=== PATIENT | female | born 1955 | race Caucasian/White ===

== ENCOUNTER 2025-01-05 22:05 | Emergency (ER) | payer OTHER ==
[~2025-01-05] VITALS: Ht 162.6 cm; Wt 65.0 kg
[2025-01-05 23:00] VITALS: PULSE 113; RESP 17; O2SAT 100
[2025-01-05] MEDS: ONDANSETRON HCL 4 MG/2 ML VIAL IV ONE (23:18)
[2025-01-05] MEDS: HYDROmorphone HCL 2 MG/ML VL/or syr IV ONE (23:19)
--- NOTE | 2025-01-05 23:50 | ED.PDOC ---
History of Present Illness HPI Comments This patient is a 69-year-old female who is on hospice due to metastatic cancer who arrives the ED today via EMS for evaluation of her tracheostomy status post vomiting event at home approximately 2 hours prior to arrival. Patient had vomiting event at home and dislodged part of her tracheostomy. Family was initially concerned about possible aspiration. Patient did not displays signs of vomiting while at the ED. Patient was hypertensive and tachycardic at arrival. Chief Complaint: Tube Replacement Time Seen by MD: 22:09 Reviewed Notes: Nurses Notes Information Source: Patient, Relative (Child) Mode of Arrival: EMS Severity: Mild Timing: Hours Duration: Since onset Prehospital treatment: None Past Medical History PAST MEDICAL HISTORY: Cancer Past Medical History (Other): Metastatic lung cancer. Patient is on a tracheostomy. Surgical History: Denies all surgeries [employer] History: No Pertinent [employer] History Family History Family History: Reviewed,noncontributory to illness, No family hx of Cancer, No family hx of DM, No family hx of Heart fern[place], No family hx of HTN, No family hx ofKidney fernando, No family hx of Liver fern[place], No family hx of Lung fern[place], No family hx of Stroke Social History Smoker: Non-Smoker Alcohol: Denies ETOH Use Drugs: Denies Drug Use Lives In: Home Constitutional: denies: chills, diaphoresis, fatigue, fever, malaise, sweats, weakness, others EENTM: reports: others (Tracheostomy evaluation); denies: blurred vision, double vision, ear bleeding, ear discharge, ear drainage, ear pain, ear ringing, eye pain, eye redness, hearing loss, mouth pain, mouth swelling, nasal discha rge, nose bleeding, nose congestion, nose pain, photophobia, tearing, throat pain, throat swelling, voice changes Respiratory: denies: cough, hemoptysis, orthopnea, SOB at rest, shortness of breath, SOB with excertion, stridor, wheezing, others Cardiovascular: denies: chest pain, dizzy spells, diaphoresis, Dyspnea on exertion, edema, irregular heart beat, left arm pain, lightheadedness, palpitations, PND, syncope, others Gastrointestinal: denies: abdomen distended, abdominal pain, blood streaked bowels, constipated, diarrhea, dysphagia, difficulty swallowing, hematemesis, melena, nausea, poor appetite, poor fluid intake, rectal bleeding, rectal pain, vomiting, others Genitourinary: denies: abnormal vagina bleeding, burning, dyspareunia, dysuria, flank pain, frequency, hematuria, incontinence, pain, , vagina discharge, urgency, others Neurological: denies: dizziness, fainting, headache, left sided numbness, left sided weakness, numbness, paresthesia, pre-existing deficit, right sided numbness, right sided weakness, seizure, speech problems, tingling, tremors, weakness, others Musculoskeletal: denies: back pain, gout, joint pain, joint swelling, muscle pain, muscle stiffness, neck pain, others Integumetry: denies: bruises, change in color, change in hair/nails, dryness, laceration, lesions, lumps, rash, wounds, others Allergic/Immunocompromised: denies: Difficulty Healing, Frequent Infections, Hives, Itching, others Hematologic/Lymphatic: denies: anemia, blood clots, easy bleeding, easy bruising, swollen glands, others Endocrine: denies: excessive hunger, excessive sweating, excessive thirst, excessive urination, flushing, intolerance to cold, intolerance to heat, u nexplained weight gain, unexplained weight loss, others Psychiatric: denies: anxiety, bipolar disorder, depression, hopeless, panic disorder, schizophrenia, sleepless, suicidal, others Physical Exam General Appearance: Mild Distress (Patient was in no distress at time of evaluation.), Normal HEENT: Normal ENT Inspection, Pharynx Normal, TMs Normal, Other (Patient has a slightly enlarge tracheostomy with a functional and tracheostomy apparatus loosely attached to her neck. No sign of infection. Sutures look like they have burst.) Neck: Full Range of Motion, Non-Tender, Normal, Normal Inspection Respiratory: Chest Non-Tender, Lungs Clear, No Accessory Muscle Use, No Respiratory Distress, Normal Breath Sounds Cardiovascular: No Edema, No JVD, No Murmur, No Gallop, Normal Peripheral Pulses, Regular Rate/Rhythm Breast Exam: Deferred Gastrointestinal: No Organomegaly, Non Tender, No Pulsatile Mass, Normal Bowel Sounds, Soft Genitalia: Deferred Pelvic: Deferred Rectal: Deferred Extremities: NOT DONE Neurologic: NOT DONE Cerebellar Function: NOT DONE Reflexes: NOT DONE Skin: Dry, Normal Color, Warm Lymphatic: No Adenopathy Was a procedure done? Was a procedure done?: No Differential Dx Considerations may include: Tracheostomy evaluation X-Ray, Labs, Meds, VS Vital Signs Date Time Temp Pulse Resp B/P (MAP) Pulse Ox O2 Delivery O2 Flow Rate FiO2 01/05/25 23:19 117 18 113/50 01/05/25 22:05 98.3 123 20 169/70 (103) 100 Current Medications Medications (Trade) Dose Ordered Sig/Caty Route Start Time Stop Time Status Last Admin Hydromorphone HCl (Dilaudid Injection) 0.5 mg ONCE ONCE IV 01/05/25 22:30 01/05/25 22:31 DC 01/05/25 23:19 Ondansetron HCl (Zofran) 4 mg ONCE ONCE IV 01/05/25 23:15 01/05/25 23:16 DC 01/05/25 23:18 X-Ray, Labs, Meds, VS Comment Spent extensive time discussing the concerns with the family has. Advised that the patient is on hospice and therefore, even if there was an aspiration event, pulmonology would not Carri lavage the patient. Advised the family that the best course of action in my opinion was two replace the hub for the tracheostomy and send the patient home for home hospice management. Family agreed. Patient had her tracheostomy however placed by RT and is now awaiting transfer back to her home. Time of 1ST Reevaluation: 23:49 Reevaluation 1ST: Improved Consultation: PCP Patient Education/Counseling: Diagnosis, Treatment Family Education/Counseling: Diagnosis, Treatment Departure 1 Departure Time of Disposition: 23:49 Impression: Primary Impression: Tracheostomy care Additional Impression: Tracheostomy complication Disposition: 01 HOME / SELF CARE / HOMELESS Condition: Stable Additional Instructions: Transportation will be set up and patient will be transferred back to home for continued hospice evaluation. Discharged With: Self, Relative Critical Care Note Critical Care Time?: No Stability Stability form required: No Heart Score Heart Score: Heart Score Response (Comments) Value History N/A 0 EKG N/A 0 Age N/A 0 Risk Factors N/A 0 Troponin N/A 0 Total 0 ANIRUDH MCNEIL PAC Jan 05, 2025 23:50
[2025-01-06] MEDS: ONDANSETRON HCL 4 MG/2 ML VIAL IV PRN (04:14)
[2025-01-06] MEDS: HYDROmorphone HCL 2 MG/ML VL/or syr IV PRN (04:15)
[2025-01-06 08:00] VITALS: PULSE 111; RESP 18; TEMP 98.4; O2SAT 98
[2025-01-06] MEDS ORDERED: LORazepam 2MG/ML-1ML VIAL IV PRN (15:15)
[2025-01-06] MEDS: SODIUM CHLORIDE 0.9% 1,000 ML IV ONE (15:22)
[2025-01-06 19:00] VITALS: BP 99/48; PULSE 102; RESP 18; O2SAT 100
[2025-01-06] MEDS ORDERED: LORazepam 2MG/ML-1ML VIAL ONE (20:31)
== END 2025-01-06 21:08 | disposition home or self-care (01) ==
LOC: ER 22:05 → EDBD 22:05 → ER 23:52
DX: J95.00 Unspecified tracheostomy complication (principal)
CPT/HCPCS: 96361; 96374; 96375; 96376; 99285; J1171; J2405; J7030